=== PATIENT | male | born 1960 | race Caucasian/White ===

== ENCOUNTER 2018-06-18 07:15 | Day surgery (SDC) | payer OTHER ==
[~2018-06-18] VITALS: Ht 182.9 cm; Wt 90.7 kg
[2018-06-18] MEDS ORDERED: LISINOPRIL20 MG PO (08:08)
[2018-06-18] MEDS ORDERED: FLOMAX0.4 MG PO (08:09)
[2018-06-18] MEDS ORDERED: HCTZ25 MG PO (08:09)
[2018-06-18] MEDS ORDERED: HYDRALAZINE HCL10 MG (08:12)
[2018-06-18 08:20] VITALS: BP 129/87; Ht 182.9 cm; Wt 90.7 kg
--- NOTE | 2018-06-18 13:20 | NUR ---
PT IV DC'ED AT THIS TIME, INTACT, NO REDNESS OR SWELLING NOTED AT THIS TIME. PT DISCHARGE INSTRUCTIONS REVIEWED AT THIS TIME, PT VERBALIZES UNDERSTANDING OF DC INSTRUCTIONS.
--- NOTE | 2018-06-18 13:21 | NUR ---
PT LEAVING OPS AT THIS TIME. VSS, NAD NOTED.
== END 2018-06-18 13:19 ==
LOC: D.OPS 07:15
PROVIDERS: ATTEND Orthopaedic Surgery
DX: G56.22 Lesion of ulnar nerve, left upper limb (principal); Z01.812 Encounter for preprocedural laboratory examination